=== PATIENT | female | born 1995 | race Two or more races ===

== ENCOUNTER 2019-05-10 03:49 | Emergency (ER) | payer OTHER ==
[~2019-05-10] VITALS: Ht 149.9 cm; Wt 52.5 kg
--- NOTE | 2019-05-10 04:00 | NUR ---
Pt presents to room reporting right lumbar pain since yesterday that radiates to her right flank area. Pt then reports developing cramping in her RLQ today with spotting. Pt denies N/V, urinary symptoms, or recent courses of antibiotics.
[2019-05-10] MEDS ORDERED: ACETAMINOPHEN 500 MG TABLET PO ONE (04:30)
[2019-05-10 04:34] LABS: BASOPHILS # (AUTO) 0.11 x10^3/uL (0-0.1); BASOPHILS % (AUTO) 2 % (0-1); EOSINOPHILS # (AUTO) 0.17 x10^3/uL (0-0.4); EOSINOPHILS % (AUTO) 2 % (1-7); LYMPHOCYTES % (AUTO) 42 % (22-44); MD NO; MEAN CORPUSCULAR HGB CONC 33.4 g/dL (32.4-35.8); MEAN CORPUSCULAR VOLUME 92.8 fL (80-100); MEAN PLATELET VOLUME 7.2 fL (7.4-10.4); MONOCYTES # (AUTO) 0.46 x10^3/uL (0.2-0.8); MONOCYTES % (AUTO) 7 % (2-9); NEUTROPHILS # (AUTO) 3.35 x10^3/uL (1.8-6.8); NEUTROPHILS % (AUTO) 48 % (42-75); PLATELET COUNT 291 x10^3/uL (130-400); RED BLOOD COUNT 3.98 x10^6/uL (3.82-5.3); RED CELL DISTRIBUTION WIDTH 13.5 % (9.6-15.2)
[2019-05-10] MEDS ORDERED: ACETAMINOPHEN 500 MG TABLET ONE (04:36)
[2019-05-10 04:47] LABS: ALBUMIN 3.5 g/dL (3.4-5.0); ANION GAP 8 mmol/L (5-15); CALCIUM 8.1 mg/dL (8.5-10.1); CHLORIDE 109 mmol/L (98-107); CREATININE 0.55 mg/dL (0.55-1.02)
[2019-05-10 05:55] LABS: MICROSCOPIC NOT IND
[2019-05-10 05:59] LABS: CULTURE INDICATED? NO
[2019-05-10 06:49] VITALS: BP 108/89
--- NOTE | 2019-05-10 06:52 | NUR ---
report received from kyrie gonzalez.
--- NOTE | 2019-05-10 07:40 | NUR ---
pt sleeping in [facility]. pt's aox4. resps even and unlabored. call light within reach.
--- NOTE | 2019-05-10 09:01 | NUR ---
Patient given discharge instructions and they have confirmed that they understand the instructions. Patient ambulatory with steady gait.
== END 2019-05-10 09:01 | disposition home or self-care (01) ==
LOC: ED 04:17
DX: O46.91 Antepartum hemorrhage, unspecified, first trimester (principal); R10.11 Right upper quadrant pain; R10.31 Right lower quadrant pain; M54.5 Low back pain; Z3A.01 Less than 8 weeks gestation of pregnancy
CPT/HCPCS: 36415; 76801; 80048; 81003; 82040; 84702; 85025; 86901; 99284

== ENCOUNTER 2019-05-14 02:25 | Emergency (ER) | payer OTHER ==
[~2019-05-14] VITALS: Ht 149.9 cm; Wt 53.0 kg
--- NOTE | 2019-05-14 03:34 | NUR ---
pt to ultrasound
[2019-05-14 03:44] LABS: MICROSCOPIC AUTO
[2019-05-14 03:50] LABS: CULTURE INDICATED? NO
[2019-05-14 04:09] LABS: BASOPHILS # (AUTO) 0.06 x10^3/uL (0-0.1); BASOPHILS % (AUTO) 1 % (0-1); EOSINOPHILS # (AUTO) 0.23 x10^3/uL (0-0.4); EOSINOPHILS % (AUTO) 2 % (1-7); LYMPHOCYTES # (AUTO) 2.34 x10^3/uL (1-3.4); LYMPHOCYTES % (AUTO) 23 % (22-44); MD NO; MEAN CORPUSCULAR HEMOGLOBIN 31.2 pg (27.0-34.8); MEAN CORPUSCULAR VOLUME 91.9 fL (80-100); MEAN PLATELET VOLUME 7.2 fL (7.4-10.4); MONOCYTES # (AUTO) 0.71 x10^3/uL (0.2-0.8); MONOCYTES % (AUTO) 7 % (2-9); NEUTROPHILS # (AUTO) 6.92 x10^3/uL (1.8-6.8); NEUTROPHILS % (AUTO) 68 % (42-75); PLATELET COUNT 290 x10^3/uL (130-400); RED BLOOD COUNT 4.05 x10^6/uL (3.82-5.3); RED CELL DISTRIBUTION WIDTH 13.8 % (9.6-15.2)
[2019-05-14 04:19] LABS: ALANINE AMINOTRANSFERASE 15 U/L (12-78); ALBUMIN 3.5 g/dL (3.4-5.0); ANION GAP 6 mmol/L (5-15); CALCIUM 8.2 mg/dL (8.5-10.1); CHLORIDE 108 mmol/L (98-107); CREATININE 0.58 mg/dL (0.55-1.02)
[2019-05-14] MEDS ORDERED: ACETAMINOPHEN 325 MG TABLET PO ONE (04:30)
[2019-05-14 04:37] LABS: ALKALINE PHOSPHATASE 64 U/L (45-117); BILIRUBIN,TOTAL 0.2 mg/dL (0.2-1.0)
[2019-05-14] MEDS ORDERED: DIAZEPAM 5 MG TABLET ONE (04:49)
[2019-05-14] MEDS ORDERED: ONDANSETRON ODT 4 MG ONE (04:49)
[2019-05-14] MEDS ORDERED: ACETAMINOPHEN 325 MG TABLET ONE (04:49)
[2019-05-14 04:54] VITALS: BP 107/57
[2019-05-14] MEDS ORDERED: ONDANSETRON ODT 4 MG PO ONE (05:00)
[2019-05-14] MEDS ORDERED: DIAZEPAM 5 MG TABLET PO ONE (05:00)
== END 2019-05-14 05:38 | disposition home or self-care (01) ==
LOC: ED 02:45
DX: O03.4 Incomplete spontaneous abortion without complication (principal)
CPT/HCPCS: 36415; 76801; 80053; 81001; 84702; 85025; 86901; 99284; Q0162

== ENCOUNTER 2019-10-24 14:52 | Emergency (ER) | payer OTHER ==
[~2019-10-24] VITALS: Ht 149.9 cm; Wt 53.6 kg
[2019-10-24 15:10] VITALS: BP 118/69
--- NOTE | 2019-10-24 16:16 | NUR ---
Patient/Caregiver given discharge instructions and they have confirmed that they understand the instructions. Patient ambulatory with steady gait.
== END 2019-10-24 16:18 | disposition home or self-care (01) ==
LOC: ED 16:14
DX: J02.8 Acute pharyngitis due to other specified organisms (principal); Z20.828 Contact with and (suspected) exposure to other viral communicable diseases; B97.89 Other viral agents as the cause of diseases classified elsewhere; R51 Headache
CPT/HCPCS: 36415; 87635; 99283